=== PATIENT | female | born 1985 | race Caucasian/White ===

== ENCOUNTER 2016-11-30 10:38 | Emergency (ER) | payer OTHER ==
[~2016-11-30] VITALS: Ht 160 cm; Wt 67.2 kg
[~2016-11-30 10:38] MED LIST: IBUP-1222 PO; OXYC-302 PO; PREN1TAB60 PO; albuterol inhaler IH
[2016-11-30] MEDS ORDERED: KETOROLAC 30 MG/1 ML ONE (11:21)
[2016-11-30] MEDS ORDERED: ONDANSETRON 2MG/ML, 2ML ONE (11:22)
[2016-11-30] MEDS ORDERED: KETOROLAC 30 MG/1 ML IVPush ONE (11:30)
[2016-11-30] MEDS ORDERED: ONDANSETRON 2MG/ML, 2ML IVPush ONE (11:30)
[2016-11-30] MEDS ORDERED: SODIUM CHLORIDE 0.9% 1,000ML IVBOLUS ONE (11:30)
[2016-11-30] MEDS ORDERED: SODIUM CHLORIDE FLUSH 10ML SYR IVF ONE (11:30)
[2016-11-30 11:56] LABS: ASPARTATE AMINO TRANSFERASE 14 U/L (15-37); BLOOD UREA NITROGEN 16 mg/dL (7-18)
[2016-11-30 12:07] LABS: PATH.CAST-FLAG NOT PRESENT; SPERM-FLAG NOT PRESENT; SRC-FLAG NOT PRESENT; XTAL-FLAG NOT PRESENT; YLC-FLAG NOT PRESENT
[2016-11-30] MEDS ORDERED: FENTANYL PF 100 MCG/2ML ONE (12:23)
[2016-11-30] MEDS ORDERED: FENTANYL PF 100 MCG/2ML IVPush PRN (12:30)
[2016-11-30 12:33] LABS: HCG UR OBC PASS
[2016-11-30 15:32] VITALS: BP 133/90
== END 2016-11-30 15:36 | disposition home or self-care (01) ==
LOC: ED 11:31
DX: R10.31 Right lower quadrant pain (principal); Z90.721 Acquired absence of ovaries, unilateral
CPT/HCPCS: 36415; 74177; 76830; 80053; 81001; 81025; 85025; 96361; 96374; 96375; 99285; J1885; J2405; J3010; J7030

== ENCOUNTER 2018-04-13 15:45 | Emergency (ER) | payer MEDICAID, OTHER ==
[~2018-04-13] VITALS: Ht 157.5 cm; Wt 59.6 kg
[2018-04-13 15:53] VITALS: BP 122/80
[2018-04-13 16:32] LABS: BASOPHILS # (AUTO) 0.02 x10^3/uL (0-0.1); BASOPHILS % (AUTO) 0 % (0-1); EOSINOPHILS # (AUTO) 0.18 x10^3/uL (0-0.4); EOSINOPHILS % (AUTO) 3 % (1-7); LYMPHOCYTES % (AUTO) 24 % (22-44); MD NO; MEAN CORPUSCULAR HEMOGLOBIN 31.5 pg (27.0-34.8); MEAN CORPUSCULAR HGB CONC 34.2 g/dL (32.4-35.8); MEAN CORPUSCULAR VOLUME 92.1 fL (80-100); MEAN PLATELET VOLUME 9.1 fL (7.4-10.4); MONOCYTES # (AUTO) 0.32 x10^3/uL (0.2-0.8); MONOCYTES % (AUTO) 5 % (2-9); NEUTROPHILS # (AUTO) 4.52 x10^3/uL (1.8-6.8); NEUTROPHILS % (AUTO) 68 % (42-75); PLATELET COUNT 221 x10^3/uL (130-400); RED CELL DISTRIBUTION WIDTH 13.6 % (9.6-15.2)
== END 2018-04-13 18:20 | disposition home or self-care (01) ==
LOC: ED 18:00
DX: O03.4 Incomplete spontaneous abortion without complication (principal); Z3A.00 Weeks of gestation of pregnancy not specified
CPT/HCPCS: 36415; 76801; 84702; 85025; 99285

== ENCOUNTER 2018-08-05 14:16 | Emergency (ER) | payer MEDICAID ==
[~2018-08-05] VITALS: Ht 157.5 cm; Wt 58.0 kg
[2018-08-05 15:17] LABS: BASOPHILS # (AUTO) 0.03 x10^3/uL (0-0.1); BASOPHILS % (AUTO) 1 % (0-1); EOSINOPHILS % (AUTO) 4 % (1-7); LYMPHOCYTES # (AUTO) 2.03 x10^3/uL (1-3.4); LYMPHOCYTES % (AUTO) 29 % (22-44); MD NO; MEAN CORPUSCULAR HEMOGLOBIN 31.1 pg (27.0-34.8); MEAN CORPUSCULAR HGB CONC 33.3 g/dL (32.4-35.8); MEAN CORPUSCULAR VOLUME 93.4 fL (80-100); MEAN PLATELET VOLUME 8.8 fL (7.4-10.4); MONOCYTES # (AUTO) 0.52 x10^3/uL (0.2-0.8); MONOCYTES % (AUTO) 7 % (2-9); NEUTROPHILS # (AUTO) 4.14 x10^3/uL (1.8-6.8); NEUTROPHILS % (AUTO) 59 % (42-75); PLATELET COUNT 219 x10^3/uL (130-400); RED BLOOD COUNT 4.19 x10^6/uL (3.82-5.3)
[2018-08-05 15:25] LABS: ALANINE AMINOTRANSFERASE 14 U/L (12-78); ALBUMIN 3.6 g/dL (3.4-5.0); ANION GAP 8 mmol/L (5-15); CALCIUM 8.5 mg/dL (8.5-10.1); CHLORIDE 107 mmol/L (98-107); CREATININE 0.64 mg/dL (0.55-1.02)
[2018-08-05 15:28] LABS: ALKALINE PHOSPHATASE 46 U/L (45-117); BILIRUBIN,TOTAL 0.3 mg/dL (0.2-1.0); TOTAL PROTEIN 6.8 g/dL (6.4-8.2)
--- NOTE | 2018-08-05 15:33 | NUR ---
VAGINAL BLEEDING AND ABD PAIN, SENT BY DR HAAS FOR DNC, LMP-05/01/18. SKIN WARM, PINK, PALE. [id number]. VSS
[2018-08-05] MEDS ORDERED: SODIUM CHLORIDE FLUSH 10ML SYR IVF PRN (16:00)
[2018-08-05] MEDS ORDERED: HYDROmorphone 2 MG/ML, 1ML IVPush ONE (16:30)
[2018-08-05] MEDS ORDERED: HYDROmorphone 2 MG/ML, 1ML ONE ×2 (16:31→18:46)
[2018-08-05] MEDS ORDERED: ONDANSETRON 2MG/ML, 2ML ONE ×3 (16:31→17:30)
[2018-08-05 16:34] VITALS: BP 127/87
[2018-08-05] MEDS ORDERED: FENTANYL PF 100 MCG/2ML ONE ×2 (16:35→18:16)
[2018-08-05] MEDS ORDERED: MIDAZOLAM 1 MG/ML, 2ML ONE ×2 (16:35→18:26)
--- NOTE | 2018-08-05 16:42 | NUR ---
REPORT CALLED TO JULIETH IN THE PACU
[2018-08-05] MEDS ORDERED: ONDANSETRON 2MG/ML, 2ML IVPush ONE ×2 (17:00)
[2018-08-05] MEDS ORDERED: DEXAMETHASONE 4 MG/ML, 1ML ONE ×2 (17:20)
[2018-08-05] MEDS ORDERED: PROPOFOL 10 MG/ML, 20ML ONE (17:20)
[2018-08-05] MEDS ORDERED: SUCCINYLCHOLINE 20 MG/ML, 10ML ONE (17:30)
[2018-08-05] MEDS ORDERED: KETOROLAC 30 MG/1 ML ONE (17:30)
[2018-08-05] MEDS ORDERED: ROCURONIUM 10 MG/ML,10ML ONE (17:30)
[2018-08-05] MEDS ORDERED: CEFAZOLIN 1,000 MG ONE (17:30)
[2018-08-05 17:52] LABS: CULTURE INDICATED? YES; MICROSCOPIC INDICATED
[2018-08-05] MEDS ORDERED: ACETAMINOPHEN 325 MG TABLET PO PRN (18:00)
[2018-08-05] MEDS ORDERED: hydrALAzine 20 MG/ML, 1ML IV PRN (18:00)
[2018-08-05] MEDS ORDERED: ALBUTEROL SULFATE 2.5 MG/3 ML NPPB PRN (18:00)
[2018-08-05] MEDS ORDERED: DIAZEPAM 5 MG/ML, 2ML IVPush PRN (18:00)
[2018-08-05] MEDS ORDERED: MORPHINE SULFATE 4 MG/ML, 1ML IVPush PRN (18:00)
[2018-08-05] MEDS ORDERED: MIDAZOLAM 1 MG/ML, 2ML IV PRN (18:00)
[2018-08-05] MEDS ORDERED: EPHEDRINE 50 MG/ML, 1ML IVPush PRN (18:00)
[2018-08-05] MEDS ORDERED: LABETALOL 5MG/ML, 20ML IV PRN (18:00)
[2018-08-05] MEDS ORDERED: PROMETHAZINE 25 MG/ML, 1ML IV PRN (18:00)
[2018-08-05] MEDS ORDERED: PROMETHAZINE 12.5 MG SUPP PR PRN (18:00)
[2018-08-05] MEDS ORDERED: ONDANSETRON ODT 8 MG PO PRN (18:00)
[2018-08-05] MEDS ORDERED: HALOPERIDOL 5 MG/ML IV PRN (18:00)
[2018-08-05] MEDS ORDERED: ONDANSETRON 2MG/ML, 2ML IV PRN ×2 (18:00→21:00)
[2018-08-05] MEDS ORDERED: MEPERIDINE/PF 25MG/0.5ML IVPush PRN (18:00)
[2018-08-05] MEDS ORDERED: OXYcodone 5 MG/5 ML ORAL.SOL UDC PO PRN (18:00)
[2018-08-05] MEDS: FENTANYL PF 100 MCG/2ML IV PRN ×2 (18:20→18:31)
[2018-08-05] MEDS ORDERED: OXYcodone 5 MG/5 ML ORAL.SOL UDC ONE (18:26)
[2018-08-05] MEDS: HYDROmorphone 1 MG/ML, 1ML IV PRN ×4 (18:49→19:40)
[2018-08-05] MEDS ORDERED: FENTANYL PF 100 MCG/2ML IV PRN (21:00)
[2018-08-05] MEDS ORDERED: HYDROcodone/APAP 7.5-325MG/15ML UDC PO PRN (21:00)
[2018-08-05] MEDS ORDERED: IBUPROFEN 600 MG TABLET PO PRN (21:00)
== END 2018-08-05 15:32 | disposition home or self-care (01) ==
LOC: OR 15:31 → UNDOADMIN 15:32 → EDIP 15:32 → OR 15:33 → 4NOR 19:59 → EDIP 19:59 → UNDODISIN 20:50
DX: O02.1 Missed abortion (principal); Z88.6 Allergy status to analgesic agent; Z72.0 Tobacco use; Z79.899 Other long term (current) drug therapy
CPT/HCPCS: 36415; 59820; 80053; 81001; 85025; 86850; 86900; 87086; 88305; 96374; 96375; 99285; J0330; J0690; J1100; J1170; J1885; J2250; J2405; J2704; J3010; G0378